=== PATIENT | female | born 1985 | race Caucasian/White ===

== ENCOUNTER 2022-04-01 09:16 | Emergency (ER) | payer OTHER ==
[~2022-04-01] VITALS: Ht 154.9 cm; Wt 97.5 kg
[2022-04-01] MEDS ORDERED: MORPHINE SULFATE INJ 2 MG/ML DISP.SYRIN ONE (09:39)
[2022-04-01] MEDS ORDERED: ONDANSETRON HCL/PF 4 MG/2 ML VIAL ONE (09:40)
[2022-04-01] MEDS ORDERED: ONDANSETRON HCL/PF - ER 4 MG/2 ML VIAL IV ONE (10:00)
[2022-04-01] MEDS ORDERED: MORPHINE SULFATE INJ 2 MG/ML DISP.SYRIN IV ONE (10:00)
[2022-04-01 10:09] LABS: BASOPHILS % (AUTO) 0.6 % (0.0-2.0); HEMATOCRIT 38 % (33-45); HEMOGLOBIN 12.9 g/dL (11.5-14.8); LYMPHOCYTES # (AUTO) 2.4 K/uL (0.8-4.8); LYMPHOCYTES % (AUTO) 30.2 % (20.0-44.0); MEAN CORPUSCULAR HGB CONC 34 g/dl (31.0-36.0); MEAN CORPUSCULAR VOLUME 84 fL (82-100); MONOCYTES # (AUTO) 0.6 K/uL (0.1-1.30); MONOCYTES % (AUTO) 7.3 % (2.0-12.0); NEUTROPHILS # (AUTO) 4.9 K/uL (1.8-8.9); NEUTROPHILS % (AUTO) 60.9 % (43.0-81.0); PLATELET COUNT (AUTO) 244 K/uL (150-450); WHITE BLOOD COUNT (AUTO) 8.1 K/uL (4.3-11.0)
[2022-04-01 10:22] LABS: BILIRUBIN,URINE 1+ (NEGATIVE); COLOR,URINE YELLOW (YELLOW); LEUKOCYTE ESTERASE ,URINE NEGATIVE (NEGATIVE); NITRITE, URINE NEGATIVE (NEGATIVE); PROTEIN,URINE 2+ mg/dl (NEGATIVE); UGLUCOSE NEGATIVE (NEGATIVE); UROBILINOGEN,URINE 0.2 EU/dL (0.2)
[2022-04-01 10:28] LABS: ALANINE AMINOTRANSFERASE 38 U/L (12-78); ALBUMIN 3.8 g/dL (3.4-5.0); ALKALINE PHOSPHATASE 38 U/L (46-116); ASPARTATE AMINOTRANSFERASE 21 U/L (15-37); BILIRUBIN,DIRECT 0.1 mg/dL (0.0-0.2); BILIRUBIN,TOTAL 0.3 mg/dL (0.2-1.0); CALCIUM, SERUM 8.6 mg/dL (8.5-10.1); CARBON DIOXIDE 23 mmol/L (21-32); CHLORIDE 105 mmol/L (98-107); CREATININE 0.6 mg/dL (0.6-1.3); GLUCOSE 110 mg/dL (74-106); LIPASE 69 U/L (73-393); POTASSIUM 3.5 mmol/L (3.5-5.1); SODIUM SERUM 139 mmol/L (136-145); TOTAL PROTEIN, SERUM 7.7 g/dL (6.4-8.2); UREA NITROGEN, BLOOD 16 mg/dL (7-18)
--- NOTE | 2022-04-01 10:30 | NUR ---
US at bedside- not able to torate exam per tech. notified
[2022-04-01] MEDS ORDERED: HYDROMORPHONE 1 MG/1 ML DISP.SYRIN ONE (10:49)
[2022-04-01] MEDS ORDERED: HYDROMORPHONE 1 MG/1 ML DISP.SYRIN IV ONE (11:00)
--- NOTE | 2022-04-01 11:35 | NUR ---
Appears more comfortable. Dozing
[2022-04-01] MEDS ORDERED: KETOROLAC TROMETHAMINE INJ 30 MG/ML VIAL IV ONE (12:00)
[2022-04-01] MEDS ORDERED: TAMS-12 PO (12:30)
[2022-04-01] MEDS ORDERED: OXYC5CAP18 PO (12:30)
[2022-04-01] MEDS ORDERED: IBUP-1953 PO (12:30)
[2022-04-01] MEDS ORDERED: KETOROLAC TROMETHAMINE 15 MG/ML VIAL ONE (12:38)
--- NOTE | 2022-04-01 12:40 | NUR ---
Pt moaning/groaning- Medicated as ordered
[2022-04-01 12:48] LABS: BACTERIA,URINE Few /HPF (None Seen); SQUAMOUS EPITHELIAL CELL,UR Moderate /HPF (None Seen)
[2022-04-01] MEDS ORDERED: TAMSULOSIN 0.4 MG CAP.SR.24H ONE (12:54)
[2022-04-01] MEDS ORDERED: HYDROCODONE/APAP 5/325MG TABLET ONE (12:54)
--- NOTE | 2022-04-01 12:58 | NUR ---
Pt writhing/moaning secondary to pain- additional meds given as order
[2022-04-01] MEDS ORDERED: HYDROCODONE/APAP 5/325MG TABLET PO ONE (13:00)
[2022-04-01] MEDS ORDERED: TAMSULOSIN 0.4 MG CAP.SR.24H PO ONE (13:00)
[2022-04-01 13:33] VITALS: BP 114/50
--- NOTE | 2022-04-01 13:34 | NUR ---
Pt States "feeling better" Patient discharged to home in stable condition. Written and verbal after care instructions given. Patient verbalizes understanding of instruction.
[2022-04-01] MEDS ORDERED: CEPH500C2 PO (13:48)
== END 2022-04-01 13:34 | disposition home or self-care (01) ==
LOC: ER 09:16
DX: N13.2 Hydronephrosis with renal and ureteral calculous obstruction (principal); R11.10 Vomiting, unspecified
CPT/HCPCS: 99285; 74176; 76856; 96375; 93005; 85025; 80048; 87086; 83605 ×2; 83690; 80076; 84703; 81001; 36415; 96374 ×2; J2405 ×2; J2270; J1170; J1885